=== PATIENT | male | born 1995 | race Caucasian/White ===

== ENCOUNTER 2023-02-23 18:23 | Emergency (ER) | payer MEDICAID, OTHER ==
[~2023-02-23] VITALS: Ht 167.6 cm; Wt 77.6 kg
[2023-02-23 18:32] VITALS: BP 132/68; TEMP 98.4; O2SAT 100
[2023-02-23] MEDS ORDERED: FLUORESCEIN SODIUM OPHTH 1 EA STRIP ONE (18:50)
[2023-02-23] MEDS ORDERED: FLUORESCEIN SODIUM OPHTH 1 EA STRIP OP ONE (19:00)
[2023-02-23] MEDS ORDERED: TETRAcaine 5 ML BOTTLE LEFTEYE ONE (19:00)
[2023-02-23] MEDS ORDERED: DEXT15DR6 LEFTEYE (19:31)
[2023-02-23] MEDS ORDERED: POLY10DR OP (19:31)
== END 2023-02-23 19:40 | disposition home or self-care (01) ==
LOC: ER 18:46
DX: H11.152 Pinguecula, left eye (principal); H10.9 Unspecified conjunctivitis; Z60.2 Problems related to living alone